=== PATIENT | female | born 1995 | race Caucasian/White ===

== ENCOUNTER 2018-12-25 08:30 | Emergency (ER) | payer SELFPAY ==
[~2018-12-25] VITALS: Ht 139.7 cm; Wt 43.2 kg
[2018-12-25 08:35] VITALS: Ht 139.7 cm; Wt 43.2 kg
[2018-12-25 09:17] LABS: APPEARANCE CLOUDY (CLEAR); BILIRUBIN NEGATIVE (NEGATIVE); COLOR YELLOW (YELLOW); GLUCOSE NEGATIVE (NEGATIVE); KETONE NEGATIVE (NEGATIVE); NITRITE NEGATIVE (NEGATIVE); PROTEIN NEGATIVE (NEGATIVE); UROBILINOGEN NORMAL (NORMAL)
[2018-12-25 09:19] LABS: AMORPHOUS SEDIMENT >1+ /lpf (NONE SEEN); BACTERIA FEW /hpf (NEGATIVE); MUCUS <1+ /lpf (NONE SEEN); RED CELLS - URINE OCC /hpf (0-5)
[2018-12-25 09:23] LABS: BASOPHILS 0.2 % (0-2); EOSINOPHILS 4.1 % (0-7); HEMATOCRIT 43.8 % (36.0-48.0); HEMOGLOBIN 14.8 g/dL (12-16); IMMATURE GRANULOCYTES 0.2 % (0-5); MCH 34.3 pg (26.0-34.0); MCHC 33.8 g/dL (31.0-37.0); MCV 101.6 fL (80.0-100.0); MEAN PLATELET VOLUME 9.5 fL (7.4-10.4); NEUTROPHILS 62.5 % (40-80); PLATELET COUNT 205 10x3/uL (130-400); RBC 4.31 10x6/uL (4.00-5.40); RDW 13.7 % (11.5-14.5); WBC 12.6 10x3/uL (4.8-10.8)
[2018-12-25 09:44] LABS: HCG URINE NEGATIVE (NEGATIVE)
[2018-12-25 09:47] LABS: ALBUMIN 3.6 g/dL (3.4-5.0); ALKALINE PHOSPHATASE 49 U/L (46-116); ALT (SGPT) 15 U/L (10-68); AMYLASE - SERUM 39 U/L (25-115); BILIRUBIN - TOTAL 0.21 mg/dL (0.2-1.3); CALC OSMOLALITY 277 mosm/kg (275-300); CALCIUM 8.5 mg/dL (8.5-10.1); CARBON DIOXIDE 23.4 mmol/L (21.0-32.0); CHLORIDE - SERUM 105 mmol/L (98-107); CREATININE - SERUM 0.6 mg/dL (0.6-1.3); GLUCOSE 90 mg/dL (74-106); LIPASE 86 U/L (73-393); POTASSIUM - SERUM 4.5 mmol/L (3.5-5.1); PROTEIN - SERUM 6.6 g/dL (6.4-8.2); SODIUM 139 mmol/L (136-145); UREA NITROGEN 12 mg/dL (7-18); eGFR NON AFRICAN AMERICAN > 90 mL/min (90-120)
[2018-12-25 09:48] LABS: TROPONIN-I < 0.017 ng/mL (0.000-0.060)
[2018-12-25] MEDS ORDERED: FLAGYL500 MG PO (10:14)
[2018-12-25] MEDS ORDERED: ZOFRAN ODT4 MG/UDTAB PO (10:14)
[2018-12-25 10:43] VITALS: BP 144/84
== END 2018-12-25 10:39 | disposition home or self-care (01) ==
LOC: D.ER 08:30 → EDBD 08:30 → D.ER 10:39
PROVIDERS: Emergency Medicine
DX: R11.2 Nausea with vomiting, unspecified (principal); N39.0 Urinary tract infection, site not specified

== ENCOUNTER 2019-01-27 09:15 | Emergency (ER) | payer MEDICAID ==
[~2019-01-27] VITALS: Ht 139.7 cm; Wt 43.2 kg
[~2019-01-27 09:15] MED LIST: FLAGYL500 MG PO; ZOFRAN ODT4 MG/UDTAB PO
[2019-01-27 09:39] VITALS: Ht 139.7 cm; Wt 43.2 kg
[2019-01-27 10:12] LABS: BASOPHILS 0.2 % (0-2); EOSINOPHILS 2.2 % (0-7); HEMATOCRIT 43.1 % (36.0-48.0); HEMOGLOBIN 14.8 g/dL (12-16); IMMATURE GRANULOCYTES 0.1 % (0-5); LYMPHOCYTES 28.8 % (15-50); MCH 33.8 pg (26.0-34.0); MCHC 34.3 g/dL (31.0-37.0); MCV 98.4 fL (80.0-100.0); MEAN PLATELET VOLUME 9.5 fL (7.4-10.4); MONOCYTES 6.5 % (2-11); NEUTROPHILS 62.2 % (40-80); RBC 4.38 10x6/uL (4.00-5.40); RDW 12.6 % (11.5-14.5); WBC 9.9 10x3/uL (4.8-10.8)
[2019-01-27 10:24] LABS: CALC OSMOLALITY 273 mosm/kg (275-300); CALCIUM 8.4 mg/dL (8.5-10.1); CARBON DIOXIDE 24.8 mmol/L (21.0-32.0); CHLORIDE - SERUM 106 mmol/L (98-107); CREATININE - SERUM 0.6 mg/dL (0.6-1.3); POTASSIUM - SERUM 4.1 mmol/L (3.5-5.1); SODIUM 139 mmol/L (136-145); UREA NITROGEN 7 mg/dL (7-18); eGFR NON AFRICAN AMERICAN > 90 mL/min (90-120)
[2019-01-27 10:32] LABS: GLUCOSE 65 mg/dL (74-106); PLATELET COUNT 271 10x3/uL (130-400)
[2019-01-27 10:35] LABS: ALBUMIN 3.6 g/dL (3.4-5.0); ALKALINE PHOSPHATASE 54 U/L (46-116); ALT (SGPT) 19 U/L (10-68); AMYLASE - SERUM 43 U/L (25-115); BILIRUBIN - TOTAL 0.23 mg/dL (0.2-1.3); LIPASE 101 U/L (73-393); PROTEIN - SERUM 7.5 g/dL (6.4-8.2)
[2019-01-27 10:46] LABS: APPEARANCE CLEAR (CLEAR); COLOR YELLOW (YELLOW); SPECIFIC GRAVITY 1.005 (1.005-1.020)
[2019-01-27 10:47] LABS: BILIRUBIN NEGATIVE (NEGATIVE); GLUCOSE NEGATIVE (NEGATIVE); KETONE NEGATIVE (NEGATIVE); NITRITE NEGATIVE (NEGATIVE); PROTEIN NEGATIVE (NEGATIVE); UROBILINOGEN NORMAL (NORMAL)
[2019-01-27 10:48] LABS: BACTERIA FEW /hpf (NEGATIVE); EPITHELIAL CELLS OCC /hpf (0-5); RED CELLS - URINE OCC /hpf (0-5); WHITE CELLS - URINE OCC /hpf (NEGATIVE)
[2019-01-27 10:57] LABS: HCG URINE NEGATIVE (NEGATIVE)
[2019-01-27 11:47] VITALS: BP 125/74
== END 2019-01-27 11:48 | disposition home or self-care (01) ==
LOC: D.ER 09:15
PROVIDERS: Family Medicine
DX: A59.9 Trichomoniasis, unspecified (principal); R10.9 Unspecified abdominal pain; F17.210 Nicotine dependence, cigarettes, uncomplicated